=== PATIENT | male | born 1935 | race Caucasian/White ===

== ENCOUNTER 2017-06-11 13:23 | Inpatient (IN) ==
--- NOTE | 2017-06-11 13:28 | Emergency Department Note ---
Disposition Clinical Impression: Pericardial effusion, Chest pain Disposition: Admitted As Inpatient Condition: Fair General Adult HPI - General Chief complaint: ED General Medical Stated complaint: worsening [facility]ardial eff[facility] Time Seen by Provider: 06/11/17 13:26 - Related Data Home Medications Medication Instructions Recorded Confirmed Omeprazole [PriLOSEC] 20 mg PO DAILY 05/31/16 06/11/17 Terazosin [Hytrin] 3 mg PO HS 05/31/16 06/11/17 Allergies Allergy/AdvReac Type Severity Reaction Status Date / Time No Known Allergies Allergy Verified 05/31/16 06:02 Past Medical History - Past Medical History Medical history: Reports: hypertension, other Surgical history: Reports: other Psychiatric history: Reports: no psych history - Social History Smoking Status: Former smoker Smokeless Tobacco Status: No Alcohol use: Reports: none Drug use: Reports: none Course Vital Signs Temperature 98.6 F 06/11/17 13:25 Pulse Rate 70 06/11/17 13:25 Respiratory Rate 18 06/11/17 13:25 Blood Pressure 107/90 06/11/17 13:25 O2 Sat by Pulse Oximetry 97 06/11/17 13:25 Temperature 98.2 F 06/12/17 08:33 Pulse Rate 68 06/12/17 08:33 Respiratory Rate 16 06/12/17 08:33 Blood Pressure 108/73 06/12/17 08:33 O2 Sat by Pulse Oximetry 96 06/12/17 08:33 Oxygen Delivery Oxygen Delivery Room Air Medical Decision Making - Lab Data Result diagrams: 06/12/17 01:23 06/12/17 01:23 Lab Results 06/11/17 06/11/17 06/11/17 Range/Units 14:23 14:23 14:23 WBC 6.7 (4.3-11.1) K/mcL RBC 4.20 (4.19-5.50) M/mcL Hgb 9.5 L (12.9-16.9) g/dL Hct 31.0 L (37.5-50.1) % MCV 73.8 L (83.0-100.0) fL MCH 22.6 L (28.0-33.3) pg MCHC 30.6 L (31.6-35.5) g/dL RDW 16.0 H (11.5-14.5) % Plt Count 264 (140-400) K/mcL MPV 8.1 L (9.4-12.4) fL Immature Gran % 0.3 (0-4) % Seg Neutrophils % 65.2 % Lymphocytes % 25.2 % Monocytes % 8.3 % Eosinophils % 0.9 % Basophils % 0.1 % Neutrophils # 4.4 (1.6-8.9) K/mcL Lymphocytes # 1.7 (0.6-4.6) K/mcL Monocytes # 0.6 (0.0-1.3) K/mcL Eosinophils # 0.1 (0.0-0.6) K/mcL Basophils # 0.0 (0.0-0.2) K/mcL Sodium 138 (136-145) mEq/L Potassium 4.1 (3.5-4.5) mEq/L Chloride 106 (98-109) mEq/L Carbon Dioxide 28 (19-29) mEq/L BUN 25 (8-26) mg/dL Creatinine 1.12 (0.72-1.25) mg/dL Est GFR ( Amer) > 60 (> 60) Est GFR (Non-Af Amer) > 60 (> 60) BUN/Creatinine Ratio 22 (6-26) Glucose 86 (70-99) mg/dL Calculated Osmolality 290 (280-300) Calcium 8.4 L (8.6-10.8) mg/dL Troponin I 0.01 (0-0.03) ng/mL B-Natriuretic Peptide (0-100) pg/mL 06/11/17 Range/Units 14:23 WBC (4.3-11.1) K/mcL RBC (4.19-5.50) M/mcL Hgb (12.9-16.9) g/dL Hct (37.5-50.1) % MCV (83.0-100.0) fL MCH (28.0-33.3) pg MCHC (31.6-35.5) g/dL RDW (11.5-14.5) % Plt Count (140-400) K/mcL MPV (9.4-12.4) fL Immature Gran % (0-4) % Seg Neutrophils % % Lymphocytes % % Monocytes % % Eosinophils % % Basophils % % Neutrophils # (1.6-8.9) K/mcL Lymphocytes # (0.6-4.6) K/mcL Monocytes # (0.0-1.3) K/mcL Eosinophils # (0.0-0.6) K/mcL Basophils # (0.0-0.2) K/mcL Sodium (136-145) mEq/L Potassium (3.5-4.5) mEq/L Chloride (98-109) mEq/L Carbon Dioxide (19-29) mEq/L BUN (8-26) mg/dL Creatinine (0.72-1.25) mg/dL Est GFR ( Amer) (> 60) Est GFR (Non-Af Amer) (> 60) BUN/Creatinine Ratio (6-26) Glucose (70-99) mg/dL Calculated Osmolality (280-300) Calcium (8.6-10.8) mg/dL Troponin I (0-0.03) ng/mL B-Natriuretic Peptide 169 H (0-100) pg/mL Attestation Statement - Attestation Attestation: I examined this patient and my medical decision-making was reviewed with the Resident Physician. I agree with the documented findings, disposition and treatment plan as described except to the extent set forth below. Face to face time provided in conjunction with the resident physician Dr. Fenton Patient arrives as a transfer from the [facility] with concern for a pericardial effusion that was increasing in size. Her echocardiogram report there was no previous tamponade patient appears in no acute distress on exam
--- NOTE | 2017-06-11 13:52 | Emergency Department Note ---
Disposition Clinical Impression: Pericardial effusion Chest pain Qualifiers: Chest pain type: unspecified Qualified Code(s): R07.9 - Chest pain, unspecified Disposition: Admitted As Inpatient Condition: Fair General Adult HPI - General Chief complaint: ED General Medical Stated complaint: worsening [facility]ard[facility] Time Seen by Provider: 06/11/17 13:26 Source: patient, EMS Mode of arrival: EMS Limitations: no limitations Nursing Notes Reviewed: Yes Vital Signs Reviewed: Yes - History of Present Illness HPI Narrative: Patient presents ED with the chief complaint of shortness of breath. Patient reports that he has a pericardial effusion that was found incidentally on outpatient echocardiogram today. States that he had pneumonia 2 weeks ago, just finished antibiotics. States he has been getting some exertional dyspnea. Denies any fever, chest pain. No syncope. No pain or swelling in his legs. No abdominal pain. Pain Scale: 0 - Related Data Home Medications Medication Instructions Recorded Confirmed Omeprazole [PriLOSEC] 20 mg PO DAILY 05/31/16 06/11/17 Terazosin [Hytrin] 3 mg PO HS 05/31/16 06/11/17 Allergies Allergy/AdvReac Type Severity Reaction Status Date / Time No Known Allergies Allergy Verified 05/31/16 06:02 All systems ED: reviewed and negative except as stated. Constitutional: Denies: fever Cardiovascular: Reports: dyspnea on exertion. Denies: chest pain Respiratory: Reports: dyspnea Gastrointestinal: Denies: vomiting Neurological: Denies: headache Past Medical History - Past Medical History Attestation: Yes The following information was validated with the patient. Source: patient Medical history: Reports: hypertension, other Surgical history: Reports: other Psychiatric history: Reports: no psych history - Social History Smoking Status: Former smoker Smokeless Tobacco Status: No Alcohol use: Reports: none Drug use: Reports: none Physical Exam - General Limitations: no limitations General appearance: alert, in no apparent distress - Head Head exam: atraumatic, normocephalic, normal inspection - Neck Neck exam: Present: normal inspection, full ROM, trachea midline, other (. No JVD) - Chest Chest inspection: Present: normal inspection, symmetric chest wall rise - Respiratory Respiratory exam: Present: normal lung sounds bilaterally - Cardiovascular Cardiovascular exam: Present: regular rate, normal rhythm. Absent: normal heart sounds (Distant heart sounds) - Abdominal Exam Abdominal exam: Present: soft, Non-Tender. Absent: tenderness, distention, guarding, rebound, rigidity - Extremities Exam Extremities exam: Present: normal inspection, full ROM. Absent: tenderness, pedal edema - Neurological Exam Neurological exam: Present: alert, oriented X3 - Psychiatric Psychiatric exam: Present: normal affect, normal mood - Skin Skin exam: Present: warm, dry, intact, normal color Course Course Narrative: Patient presenting as a transfer from the [place] with a moderate-sized pericardial effusion with hemodynamic compromise. The echocardiogram report does show a moderate pericardial effusion and that the there are echocardiographic findings consistent with hemodynamic compromise as well as Doppler tracings being consistent with hemodynamic compromise. There are also pericardial fiberglass strands present. Patient's troponin was 0, EKG is documented, patient in no acute distress, vital signs stable. - Consultations Consultation #1: I spoke with the on-call knitting machine operator automatic, Dr. Zavala. He did recommend starting the patient on fluids and they would repeat the echo for further evaluation and management. We will admit to the medicine service. Time: 14:04 Vital Signs Temperature 98.6 F 06/11/17 13:25 Pulse Rate 70 06/11/17 13:25 Respiratory Rate 18 06/11/17 13:25 Blood Pressure 107/90 06/11/17 13:25 O2 Sat by Pulse Oximetry 97 06/11/17 13:25 Temperature 97.7 F 06/11/17 16:26 Pulse Rate 66 06/11/17 16:26 Respiratory Rate 16 06/11/17 16:26 Blood Pressure 118/84 06/11/17 16:26 O2 Sat by Pulse Oximetry 100 06/11/17 16:26 Oxygen Delivery Oxygen Delivery Room Air Medical Decision Making - Medical Records Medical records reviewed: Yes I reviewed the patient's medical records. - Lab Data Lab results reviewed: Yes I reviewed the patient's lab results. Result diagrams: 06/11/17 14:23 06/11/17 14:23 Lab Results 06/11/17 06/11/17 06/11/17 Range/Units 14:23 14:23 14:23 WBC 6.7 (4.3-11.1) K/mcL RBC 4.20 (4.19-5.50) M/mcL Hgb 9.5 L (12.9-16.9) g/dL Hct 31.0 L (37.5-50.1) % MCV 73.8 L (83.0-100.0) fL MCH 22.6 L (28.0-33.3) pg MCHC 30.6 L (31.6-35.5) g/dL RDW 16.0 H (11.5-14.5) % Plt Count 264 (140-400) K/mcL MPV 8.1 L (9.4-12.4) fL Immature Gran % 0.3 (0-4) % Seg Neutrophils % 65.2 % Lymphocytes % 25.2 % Monocytes % 8.3 % Eosinophils % 0.9 % Basophils % 0.1 % Neutrophils # 4.4 (1.6-8.9) K/mcL Lymphocytes # 1.7 (0.6-4.6) K/mcL Monocytes # 0.6 (0.0-1.3) K/mcL Eosinophils # 0.1 (0.0-0.6) K/mcL Basophils # 0.0 (0.0-0.2) K/mcL Sodium 138 (136-145) mEq/L Potassium 4.1 (3.5-4.5) mEq/L Chloride 106 (98-109) mEq/L Carbon Dioxide 28 (19-29) mEq/L BUN 25 (8-26) mg/dL Creatinine 1.12 (0.72-1.25) mg/dL Est GFR ( Amer) > 60 (> 60) Est GFR (Non-Af Amer) > 60 (> 60) BUN/Creatinine Ratio 22 (6-26) Glucose 86 (70-99) mg/dL Calculated Osmolality 290 (280-300) Calcium 8.4 L (8.6-10.8) mg/dL Troponin I 0.01 (0-0.03) ng/mL B-Natriuretic Peptide (0-100) pg/mL 06/11/17 Range/Units 14:23 WBC (4.3-11.1) K/mcL RBC (4.19-5.50) M/mcL Hgb (12.9-16.9) g/dL Hct (37.5-50.1) % MCV (83.0-100.0) fL MCH (28.0-33.3) pg MCHC (31.6-35.5) g/dL RDW (11.5-14.5) % Plt Count (140-400) K/mcL MPV (9.4-12.4) fL Immature Gran % (0-4) % Seg Neutrophils % % Lymphocytes % % Monocytes % % Eosinophils % % Basophils % % Neutrophils # (1.6-8.9) K/mcL Lymphocytes # (0.6-4.6) K/mcL Monocytes # (0.0-1.3) K/mcL Eosinophils # (0.0-0.6) K/mcL Basophils # (0.0-0.2) K/mcL Sodium (136-145) mEq/L Potassium (3.5-4.5) mEq/L Chloride (98-109) mEq/L Carbon Dioxide (19-29) mEq/L BUN (8-26) mg/dL Creatinine (0.72-1.25) mg/dL Est GFR ( Amer) (> 60) Est GFR (Non-Af Amer) (> 60) BUN/Creatinine Ratio (6-26) Glucose (70-99) mg/dL Calculated Osmolality (280-300) Calcium (8.6-10.8) mg/dL Troponin I (0-0.03) ng/mL B-Natriuretic Peptide 169 H (0-100) pg/mL - Radiology Data Radiology results reviewed: Yes I reviewed the patient's radiology results. - EKG Data EKG #1 EKG attestation: Yes I reviewed and interpreted this EKG. EKG results narrative: Sinus rhythm with occasional PVC, rate 68, OK interval 175, QRS 95, QTC 392, low voltage QRS leads, no acute ischemic changes.
[2017-06-11] MEDS: 0.9 % Sodium Chloride 1,000 ML IVC SCH (14:12)
[2017-06-11 14:30] LABS: Basophils % 0.1 %; Eosinophils # 0.1 K/mcL (0.0-0.6); Eosinophils % 0.9 %; Hemoglobin 9.5 g/dL (12.9-16.9); Immature Granulocytes % 0.3 % (0-4); Lymphocytes # 1.7 K/mcL (0.6-4.6); Lymphocytes % 25.2 %; Mean Corpuscular HGB Conc 30.6 g/dL (31.6-35.5); Mean Corpuscular Hemoglobin 22.6 pg (28.0-33.3); Mean Corpuscular Volume 73.8 fL (83.0-100.0); Mean Platelet Volume 8.1 fL (9.4-12.4); Monocytes # 0.6 K/mcL (0.0-1.3); Monocytes % 8.3 %; Neutrophils # 4.4 K/mcL (1.6-8.9); Platelet Count 264 K/mcL (140-400); Segmented Neutrophils % 65.2 %
[2017-06-11 14:44] LABS: BUN/Creatinine Ratio 22 (6-26); Blood Urea Nitrogen 25 mg/dL (8-26); Calcium 8.4 mg/dL (8.6-10.8); Carbon Dioxide 28 mEq/L (19-29); Chloride 106 mEq/L (98-109); Glucose 86 mg/dL (70-99); Osmolality,Calculated 290 (280-300); Potassium 4.1 mEq/L (3.5-4.5); Sodium 138 mEq/L (136-145); eGFR For African Americans > 60 (> 60); eGFR For Non-African Americans > 60 (> 60)
--- NOTE | 2017-06-11 15:14 | Cardiology Consult Note ---
Date of Encounter: 06/11/17 Time of Encounter: 15:08 Assessment and Plan (1) Pericardial effusion Current Visit: No Status: Acute Patient had an echo done today as an outpatient and was found to have a normal EF with a moderate pericardial effusion with hemodynamic compromise. The patient was then sent to the ED at [place]. Patient denies any chest pain, arm pain, neck or jaw pain. He does state he has had some shortness of breath associated with his pneumonia. Patient does not seem to showing sign on tamponade at this time. He is currently hemodynamically stable. The patient had a pericardial effusion approximately year ago and the echo from 05/31/16 showed a moderate circumferential pericardial effusion with a LVEF of 65%. Recommend IV fluids. Repeat echocardiogram. CT surgery has been consulted. (2) HTN (hypertension) Current Visit: No Status: Chronic Patient has a history of hypertension. Most recent blood pressure of 154/83. This is being managed by the primary service. Qualifiers: Hypertension type: essential hypertension Qualified Code(s): I10 - Essential (primary) hypertension (3) Anemia Current Visit: Yes Status: Acute Patient appears to be anemic with a hemoglobin of 9.5. This is currently being managed by the primary service. Qualifiers: Anemia type: unspecified type Qualified Code(s): D64.9 - Anemia, unspecified (4) DVT prophylaxis Current Visit: Yes Status: Acute This is being managed by the primary service. Per primary note they will use antiembolic stockings and lovenox sq for dvt prophylaxis Discussion w patient/family: The assessment and plan as outlined above was discussed with the patient and/or family members who expressed understanding and agreement. All questions were answered. Thank you for involving us in the care of your patient. Please call with any questions. History of Present Illness Consult date: 06/11/17 Requesting physician: Don Fenton Consult reason: Pericardial Effusion Chief complaint: Pericardial Effusion History of present illness: Mr. Goldman is a 81 year old male the presented to the emergency department after having an outpatient echo that showed a moderate size pericardial effusion. The patient states that last was diagnosed with pneumonia and was given antibiotic therapy that he finished yesterday. When he was diagnosed with pneumonia they also scheduled him for an Echo today. After having the Echo the patient was sent to the emergency department. The patient states that he is not having chest pain, palpitations, arm pain, neck pain or jaw pain. The patient does state that he has had some shortness of breath with his pneumonia but it is not any worse today than when he had pneumonia. The patient states that he did have a pericardial effusion about one year ago and it was treated medically. Patient denies any other cardiac history. The patient states that he is feeling well and not really having any symptoms today. Past Med Surg Social Fam HX - Past Medical History Medical history: hypertension, other Psychiatric history: no psych history - Past Surgical History Surgical History: other - Social History Smoking Status: Former smoker Smokeless Tobacco Status: No Alcohol use: none Drug use: none - Family History Father Adopted: No Living Status: Hx Family Cardiac Disorders: Yes Mother Adopted: No Living Status: Hx Family Neurologic Disorders: Yes (CVA) Medications and Allergies Omeprazole [PriLOSEC] 20 mg PO DAILY 05/31/16 [History] Terazosin [Hytrin] 3 mg PO HS 05/31/16 [History] 3 Allergy/AdvReac Type Severity Reaction Status Date / Time No Known Allergies Allergy Verified 05/31/16 06:02 All Systems Review: A 10-system review of systems was performed and is negative for pertinent findings except as documented above in the HPI. - Constitutional Constitutional: other (Tired), no chills, no fever(s) - Cardiovascular Cardiovascular: dyspnea at rest (States he has some shortness of breath ), no chest pain at rest - Respiratory Respiratory: dyspnea - Gastrointestinal Gastrointestinal: no abdominal pain - Genitourinary Genitourinary: no dysuria, no hematuria - Neurological Neurological: dizziness, no numbness, no tingling Physical Examination Vital Signs, Last 4 Hours Pulse Resp BP Pulse Ox 06/11/17 14:37 85 18 154/83 98 General: Conversant, No Apparent Distress HEENT: Atraumatic, Normocephaly, Mucus Membranes Moist Neck: No JVD, Normal carotid pulses Cardiac: Reg Rate and Rhythm, Normal S1 and S2, No Murmur Lungs: Normal Breath Sounds, No Wheeze, Rales, Rhonchi Neuro: Alert and responsive, No focal deficits noted Abdomen: Soft, Non-Tender Skin: No rashes noted on visualized skin Extremities: No Clubbing, No Cyanosis, No Edema, Normal Pulses Results 06/11/17 14:23 06/11/17 14:23 - Imaging and Cardiology Chest Xray: report reviewed Echo: report reviewed - EKG Interpretation EKG results cardiology: personally reviewed, sinus rhythm Consult Discharge Plan - Plan [facility]Primary Care Provider[facility] -
[2017-06-11] MEDS ORDERED: Naloxone 0.4 MG/ML INJ IVP PRN (15:35)
[2017-06-11] MEDS ORDERED: Acetaminophen 325 MG TABLET PO PRN (15:35)
--- NOTE | 2017-06-11 15:54 | Internal Med History&Physical ---
Date of Encounter: 06/11/17 Time of Encounter: 15:46 Assessment and Plan (1) Pericardial effusion Current visit: No Status: Acute Patient with moderate pericardial effusion on echo at [place]. Review of records revealed patient had moderate pericardial effusion on echo and CT 1 year ago as well. Cardiology consulted and will repeat echocardiogram. Monitor overnight for hemodynamic changes. 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 (2) Anemia Current visit: Yes Status: Acute Hgb today of 9.6 with Hgb approximately 1 year ago of 14.9. Patient denies black or bloody stools or bleeding episodes. He does endorse fatigue and dyspnea on exertion. Will check iron studies, B12 and folate and repeat CBC with morning labs. Consider outpatient follow up with endoscopy. Qualifiers: Anemia type: unspecified type Qualified Code(s): D64.9 - Anemia, unspecified (3) DVT prophylaxis Current visit: Yes Status: Acute anti-embolic stockings lovenox SQ daily Internal Medicine - H&P: HPI Chief complaint: pericardial effusion Admitted From: Emergency Dept Plans for Post Hospital Care: Home History of present illness: Mr. Goldman is a 81 year old male with BPH and GERD who was sent over from the [place] wit concerns of pericardial effusion seen on echocardiogram. Patient reports he has had shortness of breath on exertion, coughing, and "feeling bad" over the last 2 weeks, which he attributed to a diagnosis of pneumonia last week. He reports a poor appetite and a 10lb weight loss. He reports his is feeling a bit better after recent completion of antibiotics. He was seen today at the [place] for routine follow up and Echocardiogram. The echocardiogram demonstrated a moderate pericardial effusion and he was sent to [place] ER. Patient denies any chest pain, palpitations, lightheadedness. Evaluation in our ED included CXR which showed no acute process. EKG showed sinus rhythm with PVCs and no ischemia. BNP was mildly elevated at 169, and patient is anemic with Hgb of 9.5. Cardiology was consulted and review of the records revealed patient had a moderate pericardial effusion on echo and CT 1 year ago as well. Plan is to obtain another echocardiogram and observe patient for any hemodynamic changes overnight. On exam, patient alert and oriented, in no distress. Heart has regular rate and rhythm and lungs are clear to auscultation bilaterally. No peripheral edema. Past Med Surg Social Fam HX - Past Medical History Medical history: hypertension, other Psychiatric history: no psych history - Past Surgical History Surgical History: other - Social History Smoking Status: Former smoker Smokeless Tobacco Status: No Alcohol use: none Drug use: none - Family History Father Adopted: No Living Status: Hx Family Cardiac Disorders: Yes Mother Adopted: No Living Status: Hx Family Neurologic Disorders: Yes (CVA) Internal Medicine - H&P: Meds Omeprazole [PriLOSEC] 20 mg PO DAILY 05/31/16 [History] Terazosin [Hytrin] 3 mg PO HS 05/31/16 [History] 3 Allergy/AdvReac Type Severity Reaction Status Date / Time No Known Allergies Allergy Verified 05/31/16 06:02 All Systems PM: A 10-system review of systems was performed and is negative for pertinent findings except as documented above in the HPI. - Constitutional Constitutional: fatigue, no chills, no fever(s), no night sweats - EENT Eyes: no change in vision, no discharge, no pain, no photophobia Ears: no ear discharge, no ear pain, no tinnitus Nose, mouth and throat: no dysphagia, no nasal discharge, no neck pain, no sore throat - Cardiovascular Cardiovascular ROS IM: dyspnea on exertion, no chest pain, no diaphoresis, no dyspnea, no lightheadedness, no palpitations, no syncope - Respiratory Respiratory: cough, dyspnea on exertion, no dyspnea, no wheezing, no excessive phlegm production - Gastrointestinal Gastrointestinal: no abdominal pain, no diarrhea, no hematemesis, no hematochezia, no melena, no nausea, no vomiting - Musculoskeletal Musculoskeletal ROS IM: no numbness, no tingling - Integumentary Integumentary IM: no rash, no unusual bruising - Neurological Neurological ROS: no confusion, no convulsions, no focal weakness, no numbness, no tingling, no tremor(s) - Hematologic/Lymphatic Hematologic/Lymphatic: no easy bruising - Constitutional Vitals: Temp Pulse Resp BP Pulse Ox 98.6 F 85 18 154/83 98 06/11/17 13:25 06/11/17 14:37 06/11/17 14:37 06/11/17 14:37 06/11/17 14:37 General appearance: Present: A&O X 3, pleasant, no acute distress - Head Head exam: Present: atraumatic, normocephalic - Eye Eye exam: Present: PERRL, conjuntiva pink, sclera anicteric Pupils: Present: PERRL - Neck Neck exam general surgery: Present: supple, trachea midline. Absent: lymphadenopathy - Respiratory Respiratory exam: Present: CTAB. Absent: accessory muscle use, rales, rhonchi, wheezes - Cardiovascular Cardiovascular exam: Present: RRR, +S1, +S2. Absent: diastolic murmur, gallop, rubs, systolic murmur - GI/Abdominal GI/Abdominal exam: Present: normal bowel sounds, soft, no peritoneal signs. Absent: distended, tenderness - Extremities Exam Extremities exam: Present: warm, radial pulses palpable and symmetrical. Absent : calf tenderness, cyanotic, pedal edema - Neurological Exam Neurological exam: Present: CN II-XII intact, oriented X3, no focal deficits. Absent: pronater drift, facial droop, speech deficit - Skin Skin exam: Present: dry, intact Internal Med - H&P Results - Labs CBC & Chem 7: 06/11/17 14:23 06/11/17 14:23 Labs: All Lab Results (24 Hours) 06/11/17 06/11/17 06/11/17 Range/Units 14:23 14:23 14:23 WBC 6.7 (4.3-11.1) K/mcL RBC 4.20 (4.19-5.50) M/mcL Hgb 9.5 L (12.9-16.9) g/dL Hct 31.0 L (37.5-50.1) % MCV 73.8 L (83.0-100.0) fL MCH 22.6 L (28.0-33.3) pg MCHC 30.6 L (31.6-35.5) g/dL RDW 16.0 H (11.5-14.5) % Plt Count 264 (140-400) K/mcL MPV 8.1 L (9.4-12.4) fL Immature Gran % 0.3 (0-4) % Seg Neutrophils % 65.2 % Lymphocytes % 25.2 % Monocytes % 8.3 % Eosinophils % 0.9 % Basophils % 0.1 % Neutrophils # 4.4 (1.6-8.9) K/mcL Lymphocytes # 1.7 (0.6-4.6) K/mcL Monocytes # 0.6 (0.0-1.3) K/mcL Eosinophils # 0.1 (0.0-0.6) K/mcL Basophils # 0.0 (0.0-0.2) K/mcL Sodium 138 (136-145) mEq/L Potassium 4.1 (3.5-4.5) mEq/L Chloride 106 (98-109) mEq/L Carbon Dioxide 28 (19-29) mEq/L BUN 25 (8-26) mg/dL Creatinine 1.12 (0.72-1.25) mg/dL Est GFR ( Amer) > 60 (> 60) Est GFR (Non-Af Amer) > 60 (> 60) BUN/Creatinine Ratio 22 (6-26) Glucose 86 (70-99) mg/dL Calculated Osmolality 290 (280-300) Calcium 8.4 L (8.6-10.8) mg/dL Troponin I 0.01 (0-0.03) ng/mL B-Natriuretic Peptide (0-100) pg/mL 06/11/17 Range/Units 14:23 WBC (4.3-11.1) K/mcL RBC (4.19-5.50) M/mcL Hgb (12.9-16.9) g/dL Hct (37.5-50.1) % MCV (83.0-100.0) fL MCH (28.0-33.3) pg MCHC (31.6-35.5) g/dL RDW (11.5-14.5) % Plt Count (140-400) K/mcL MPV (9.4-12.4) fL Immature Gran % (0-4) % Seg Neutrophils % % Lymphocytes % % Monocytes % % Eosinophils % % Basophils % % Neutrophils # (1.6-8.9) K/mcL Lymphocytes # (0.6-4.6) K/mcL Monocytes # (0.0-1.3) K/mcL Eosinophils # (0.0-0.6) K/mcL Basophils # (0.0-0.2) K/mcL Sodium (136-145) mEq/L Potassium (3.5-4.5) mEq/L Chloride (98-109) mEq/L Carbon Dioxide (19-29) mEq/L BUN (8-26) mg/dL Creatinine (0.72-1.25) mg/dL Est GFR ( Amer) (> 60) Est GFR (Non-Af Amer) (> 60) BUN/Creatinine Ratio (6-26) Glucose (70-99) mg/dL Calculated Osmolality (280-300) Calcium (8.6-10.8) mg/dL Troponin I (0-0.03) ng/mL B-Natriuretic Peptide 169 H (0-100) pg/mL - Diagnostic Studies Chest x-ray Additional comments: Chest X-Ray 06/11/17 13:26 IMPRESSION: No acute process. Moderate hiatal hernia. D/ / Abril Rodriguez MD / Abril Rodriguez MD Interpreting Provider: Abril Rodriguez MD
--- NOTE | 2017-06-11 16:49 | Event Note ---
Date of Encounter: 06/11/17 Time of Encounter: 16:44 Patient seen and examined with nurse practitioner. He was transferred from the [place] because of moderate pericordial effusion. Reportedly this was also evident in a prior echocardiogram year ago. Will repeat echocardiogram. Check thyroid functions. Patient has also recently noticed 10 pound weight loss in the past 2 weeks and some functional decline. He has microcytic hypochronic anemia about 4 gm hb drop compared to last year. Has not had a colonoscopy before this can be arranged as an outpatient. No obvious GI bleeding. Patient is hemodynamically stable. No clinical signs of tamponade
--- NOTE | 2017-06-11 22:57 | Electrocardiograph Report ---
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
[2017-06-12 01:37] LABS: Basophils % 0.2 %; Eosinophils # 0.1 K/mcL (0.0-0.6); Eosinophils % 1.7 %; Hematocrit 28.2 % (37.5-50.1); Hemoglobin 8.7 g/dL (12.9-16.9); Immature Granulocytes % 0.2 % (0-4); Immature Platelets 1.2 % (1.1-6.1); Lymphocytes # 1.5 K/mcL (0.6-4.6); Lymphocytes % 27.7 %; Mean Corpuscular HGB Conc 30.9 g/dL (31.6-35.5); Mean Corpuscular Hemoglobin 23.1 pg (28.0-33.3); Mean Platelet Volume 8.3 fL (9.4-12.4); Monocytes # 0.5 K/mcL (0.0-1.3); Neutrophils # 3.3 K/mcL (1.6-8.9); Platelet Count 296 K/mcL (140-400); Red Blood Count 3.76 M/mcL (4.19-5.50); Segmented Neutrophils % 61.2 %
[2017-06-12 01:51] LABS: BUN/Creatinine Ratio 22 (6-26); Blood Urea Nitrogen 25 mg/dL (8-26); Calcium 7.8 mg/dL (8.6-10.8); Carbon Dioxide 23 mEq/L (19-29); Chloride 109 mEq/L (98-109); Glucose 79 mg/dL (70-99); Osmolality,Calculated 289 (280-300); Potassium 4.3 mEq/L (3.5-4.5); Sodium 138 mEq/L (136-145); eGFR For African Americans > 60 (> 60); eGFR For Non-African Americans > 60 (> 60)
[2017-06-12 01:56] LABS: % Iron Saturation 4 % (20-55); Iron 15 mcg/dL (65-175); Transferrin 271 mg/dL (174-364)
[2017-06-12 02:15] LABS: Carcinoembryonic Antigen 1.7 ng/mL (0-5.0)
[2017-06-12 02:30] LABS: Folate 5.9 ng/mL (7.0-31.4)
[2017-06-12 03:04] LABS: Thyroid Stimulating Hormone 1.662 mcIU/mL (0.350-4.840)
[2017-06-12] MEDS ORDERED: *HR* Enoxaparin 40 MG/0.4 ML SYRINGE SQ SCH (06:00)
[2017-06-12] MEDS: 0.9 % Sodium Chloride 1,000 ML IVC SCH (06:02)
--- NOTE | 2017-06-12 08:53 | Cardiology Progress Note ---
Date of Encounter: 06/12/17 Time of Encounter: 08:50 Assessment and Plan (1) Pericardial effusion Current Visit: Yes Status: Acute Patient had an echo done yesterday at an outside facility and was found to have a normal EF with a moderate pericardial effusion with hemodynamic compromise. The patient was then sent to the ED at [place]. Patient denies any chest pain, arm pain, neck or jaw pain. He does state he has had some shortness of breath associated with his pneumonia. Patient does not seem to showing any signs of tamponade at this time. He is currently hemodynamically stable. The patient had a pericardial effusion approximately year ago and the echo from 05/31/16 showed a moderate circumferential pericardial effusion with a LVEF of 65%. Repeat Echo on 06/11/17 at [facility] showed LVEF 60-65%. Normal LV chamber size, wall thickness and function. Normal right ventricular structure and function. Unable to estimate RVSP due to lack of TR jet. There is a small to moderate circumferential pericardial effusion present. There is no echocardiographic evidence of tamponade in the views obtained. The IVC is not well evaluated. Subcostal images not well obtained. Patient is currently asymptomatic and is not displaying any physical signs of tamponade and the effusion seems to be uncahnged from previous echos. CT surgery has been consulted. We will sign off of the case at this time. Follow up with cardiology (2) HTN (hypertension) Current Visit: No Status: Chronic Patient has a history of hypertension. Most recent blood pressure of 115/71. This is being managed by the primary service. (3) Anemia Current Visit: Yes Status: Acute Patient appears to be anemic with a hemoglobin of 8.7 this is a decrease from yesterdays hemoglobin of 9.5. Patient denies any blood in the stool, coughing up blood, blood in the urine or any sort of abdominal pain. This is currently being managed by the primary service. Qualifiers: Anemia type: unspecified type Qualified Code(s): D64.9 - Anemia, unspecified (4) DVT prophylaxis Current Visit: Yes Status: Acute Antiembolic stockings and lovenox sq for dvt prophylaxis. This is being managed by the primary service Discussion w patient/family: The assessment and plan as outlined above was discussed with the patient and/or family members who expressed understanding and agreement. All questions were answered. Thank you for involving us in the care of your patient. Please call with any questions. Subjective Principal diagnosis: Pericardial Effusion Interval history: Patient states that he is going well today. He says that he had no issues overnight other than the bed being uncomfortable so he did not get much sleep. The patient denies any chest pain, palpitations, arm pain, jaw or neck pain. He states that his shortness of breath seems to be about the same. Patient denies having any pain anywhere. He states he does have a little bit of a cough because he has not been drinking as much water while in the hospital. Overall the patient states that he is doing well and has not complaints at this time. Objective Vital Signs, Last 4 Hours Temp Pulse Resp BP Pulse Ox 06/12/17 08:33 98.2 F 68 16 108/73 96 General: Conversant, No Apparent Distress HEENT: Atraumatic, Normocephaly, Mucus Membranes Moist Neck: No JVD, Normal carotid pulses Cardiac: Reg Rate and Rhythm, Normal S1 and S2, No Murmur Lungs: Other (Rales on right lower lung field) Neuro: Alert and responsive, No focal deficits noted Abdomen: Soft, Non-Tender Skin: No rashes noted on visualized skin Extremities: No Clubbing, No Cyanosis, No Edema, Normal Pulses Results 06/12/17 01:23 06/12/17 01:23 Lab Results 06/12/17 06/12/17 06/12/17 01:23 01:23 01:23 WBC 5.3 Hgb 8.7 L Hct 28.2 L Plt Count 296 Sodium 138 Potassium 4.3 Chloride 109 Carbon Dioxide 23 BUN 25 Creatinine 1.15 Glucose 79 Calcium 7.8 L TSH 1.662 - Imaging and Cardiology Chest Xray: report reviewed Echo: report reviewed - EKG Interpretation EKG results cardiology: personally reviewed, sinus rhythm - VTE Documentation of Mechanical Device: Graduated compression elastic hosiery Consult Discharge Plan - Plan [facility]: [facility] Care Provider[facility] - 06/25/17 9:00 am (THIS IS WITH THE [facility] TEAM)
[2017-06-12] MEDS ORDERED: Folic Acid 1 MG TABLET PO SCH (09:00)
--- NOTE | 2017-06-12 10:12 | Internal Med Progress Note ---
Date of Encounter: 06/12/17 Time of Encounter: 09:50 - Assessment and plan (1) BPH (benign prostatic hyperplasia) Current Visit: Yes Status: Acute (2) Pericardial effusion Current Visit: Yes Status: Acute (3) HTN (hypertension) Current Visit: No Status: Chronic Qualifiers: Hypertension type: essential hypertension Qualified Code(s): I10 - Essential (primary) hypertension (4) GERD (gastroesophageal reflux disease) Current Visit: No Status: Chronic Qualifiers: Esophagitis presence: without esophagitis Qualified Code(s): K21.9 - Gastro -esophageal reflux disease without esophagitis (5) Anemia Current Visit: Yes Status: Acute Qualifiers: Anemia type: unspecified type Qualified Code(s): D64.9 - Anemia, unspecified - Subjective Interval history: Reports exertional dyspnea and fatigue. No chest pain, palpitations, leg swelling, nausea/vomiting or abdominal pain. - Constitutional Vitals: Temp Pulse Resp BP Pulse Ox 98.2 F 68 16 108/73 96 06/12/17 08:33 06/12/17 08:33 06/12/17 08:33 06/12/17 08:33 06/12/17 08:33 General appearance: Present: A&O X 3, answers questions appropriately - Respiratory Respiratory exam: Present: CTAB. Absent: accessory muscle use, rales, rhonchi, wheezes - Cardiovascular Cardiovascular exam: Present: RRR, +S1, +S2. Absent: diastolic murmur, gallop, rubs, systolic murmur - GI/Abdominal GI/Abdominal exam: Present: normal bowel sounds, soft, no peritoneal signs. Absent: distended, tenderness - Extremities Exam Extremities exam: Present: full ROM, warm, radial pulses palpable and symmetrical. Absent: calf tenderness, cyanotic, pedal edema - Neurological Exam Neurological exam: Present: CN II-XII intact, oriented X3, no focal deficits. Absent: pronater drift, facial droop, speech deficit Internal Medicine: Result - Labs CBC & Chem 7: 06/12/17 01:23 06/12/17 01:23 Labs: Short CBC 06/12/17 Range/Units 01:23 WBC 5.3 (4.3-11.1) K/mcL Hgb 8.7 L (12.9-16.9) g/dL Hct 28.2 L (37.5-50.1) % Plt Count 296 (140-400) K/mcL Neutrophils # 3.3 (1.6-8.9) K/mcL BMP 06/12/17 01:23 Sodium 138 Potassium 4.3 Chloride 109 Carbon Dioxide 23 BUN 25 Creatinine 1.15 Glucose 79 Calcium 7.8 L - VTE Documentation of Mechanical Device: Graduated compression elastic hosiery Consult Discharge Plan - Plan [facility]errals: [facility] [Primary Care Provider] -
[2017-06-12 10:58] VITALS: BP 115/64
--- NOTE | 2017-06-12 14:53 | Discharge Summary ---
Date of Encounter: 06/12/17 Time of Encounter: 10:45 - Discharge Diagnosis (1) Anemia Priority: Primary Status: Chronic Qualifiers: Anemia type: folate deficiency Folate deficiency anemia type: unspecified folate deficiency Qualified Code(s): D52.9 - Folate deficiency anemia, unspecified (2) Pericardial effusion Priority: Primary Status: Chronic (3) BPH (benign prostatic hyperplasia) Priority: Secondary Status: Chronic Qualifiers: Lower urinary tract symptom presence: unspecified whether lower urinary tract symptoms present Qualified Code(s): N40.0 - Benign prostatic hyperplasia without lower urinary tract symptoms (4) HTN (hypertension) Priority: Secondary Status: Chronic Qualifiers: Hypertension type: essential hypertension Qualified Code(s): I10 - Essential (primary) hypertension (5) GERD (gastroesophageal reflux disease) Priority: Secondary Status: Chronic Qualifiers: Esophagitis presence: esophagitis presence not specified Qualified Code(s) : K21.9 - Gastro-esophageal reflux disease without esophagitis - Discharge Medications Prescriptions: Ferrous Sulfate 325 mg PO BIDWM #60 tablet Folic Acid 1 mg PO DAILY #30 tablet Home Medications: Omeprazole [PriLOSEC] 20 mg PO DAILY 05/31/16 [History] Terazosin [Hytrin] 3 mg PO HS 05/31/16 [History] Ferrous Sulfate 325 mg PO BIDWM #60 tablet 06/12/17 [Rx] Folic Acid 1 mg PO DAILY #30 tablet 06/12/17 [Rx] Allergies/Adverse Reactions: 3 Allergy/AdvReac Type Severity Reaction Status Date / Time No Known Allergies Allergy Verified 05/31/16 06:02 Procedures/tests Complete & Pending: Procedures Performed prior 72 hours Category Date Time Status EV echocardiogram Routine Y 06/11/17 Completed Date of admission: 06/11/17 14:34 Primary care physician: PCP [facility] Consults: 06/11/17 16:45 Consult to Nutrition [CONS] Routine Comment: Consulting Provider: NUTRITION Reason for Dietary Consult: Diet Education Discharging clinician: Irma Gates Anticipated date of discharge: 06/12/17 - Patient Status Disposition: Home, Self-Care Condition: Good Functional capacity at discharge: independent ambulation Overall status at discharge: patient is progressing back to baseline - Discharge Instructions Instructions: Iron Supplements (By mouth), Folic Acid (By mouth), Chest Pain ( DC), Heart Healthy Diet (DC), Anemia (GEN) Follow Up With: [facility],PCP [Primary Care Provider] - 06/25/17 9:00 am (THIS IS WITH THE [facility] TEAM) Additional Instructions: Follow-up appointments: If there is not an appointment listed below, please call your physician and schedule a follow-up appointment. If you have congestive heart failure and your symptoms return, make an appointment with your physician. Medication List: Carry an up to date list of medications you are taking at all time. We have given you an updated medication list including any new medications that you have been prescribed. Please provide that list to your primary provider Symptoms: If your condition changes or you experience any of the following symptoms, notify your physician immediately: Unusual or worsening pain, fever, persistent nausea and vomiting, bleeding, increase in swelling (especially in your legs), sudden weight gain, extreme dizziness, chest pain, increased drainage or redness from a wound or incision. Go to the emergency department if you experience a problem with breathing. Weights: If you have a history of swelling or shortness of breath, weigh yourself daily and notify your physician if you have a weight gain of two or more pounds in one day or 5 or more pounds in a week. If you experience any of the warning signs for stroke: Sudden numbness or weakness of the face, arm or leg; especially on one side of the body, sudden confusion, trouble speaking or understanding, sudden trouble seeing in one or both eyes, sudden trouble walking, dizziness, loss of balance or coordination, sudden sever headache with no cause; Call 911 or go to the emergency room. Stroke is a medical emergency. Some risk factors for stroke: Age, cigarette smoking, diabetes, excessive alcohol consumption, family history , high blood pressure, overweight, physical inactivity, prior stroke, heart attack, diagnosis of carotid artery stenosis or other artery disease. If you smoke, STOP: Smoking or tobacco use significantly increases your risk of heart and lung disease. Your chance of disease greatly increases if you continue to smoke. For more information, call the [employer] tobacco quit line for smoking cessation - QUIT-NOW ( ) - Diet and Activity Activity: resume usual activities as tolerated Diet: low fat, low cholesterol, low salt diet, other (iron-fortified diet) Hospital course: Mr. Goldman is a 81 year old male with the above medical problems, who was admitted with exertional dyspnea and fatigue, noted to have moderate pericardial effusion on outpatient echocardiogram. He was admitted to our hospital from the [facility] emergency room, for further evaluation. Cardiology was consulted, recommended to repeat echocardiogram, which showed mild to moderate pericardial effusion, mild left ventricular diastolic dysfunction. No evidence of tamponade. Patient also was noted to have pericardial effusion on previous imaging done about a year ago. No further intervention was recommended. Incidentally, patient was noted to have microcytic anemia with hemoglobin around 14 1 year ago, which is currently around 9.6. Iron profile showed low iron stores, serum vitamin B12 was noted to be within normal limits and serum folic acid level was noted to be low. Patient is being started on ferrous sulfate and folic acid supplements. He has been explained about the need to rule out occult GI bleed, however he mentioned that he was offered colonoscopy by his PCP which he declines at this time. Patient is currently medically stable for discharge with outpatient follow-up with primary care provider and cardiology. - Time Spent with Patient Total time spent providing and/or coordinating discharge services: Greater than 30 minutes (40 min) - Constitutional Vitals: Temp Pulse Resp BP Pulse Ox 97.7 F 56 16 115/64 98 06/12/17 10:56 06/12/17 11:00 06/12/17 10:56 06/12/17 10:56 06/12/17 10:56 General appearance: Present: A&O X 3, answers questions appropriately - Cardiovascular Cardiovascular exam: Present: RRR, +S1, +S2. Absent: diastolic murmur, gallop, rubs, systolic murmur - VTE Documentation of Mechanical Device: Graduated compression elastic hosiery
== END 2017-06-12 15:10 | disposition home or self-care (01) | DRG 316 ==
LOC: EMEROO 13:23 → 2NNU 14:34
PROVIDERS: ADMIT Hospitalist; ATTEND Internal Medicine

== ENCOUNTER 2022-02-14 12:26 | Observation (INO) ==
[2022-02-14] MEDS ORDERED: Furosemide 40 MG/4 ML VIAL IVP ONE (13:07)
[2022-02-14] MEDS ORDERED: Nitroglycerin 0.4 MG TAB.SUBL SL STA (13:07)
[2022-02-14 13:11] LABS: Mean Corpuscular Volume 64.5 fL (83.0-100.0)
[2022-02-14 13:12] LABS: Hematocrit 31.5 % (37.5-50.1); Hemoglobin 8.6 g/dL (12.9-16.9); Mean Corpuscular HGB Conc 27.3 g/dL (31.6-35.5); Mean Corpuscular Hemoglobin 17.6 pg (28.0-33.3); Mean Platelet Volume 8.3 fL (9.4-12.4); Platelet Count 348 K/mcL (140-400); Red Blood Count 4.88 M/mcL (4.19-5.50); Red Cell Distribution Width 20.7 % (11.5-14.5)
[2022-02-14 13:25] LABS: BUN/Creatinine Ratio 18 (6-26); Blood Urea Nitrogen 22 mg/dL (8-23); Calcium 8.7 mg/dL (8.6-10.3); Carbon Dioxide 25 mEq/L (23-29); Chloride 106 mEq/L (98-107); Glucose 112 mg/dL (70-105); Osmolality,Calculated 288 (280-300); Potassium 4.7 mEq/L (3.5-5.1); Sodium 137 mEq/L (136-145); Troponin I < 0.03 ng/mL (< 0.04); eGFR For African Americans > 60 (> 60); eGFR For Non-African Americans 55 (> 60)
[2022-02-14 14:00] LABS: Lymphocytes # 1.1 K/mcL (0.6-4.6); Monocytes # 0.1 K/mcL (0.0-1.3); Neutrophils # 5.7 K/mcL (1.6-8.9); Reactive Lymphocytes Present (Not Present)
[2022-02-14 14:01] LABS: Anisocytosis 2+ (Not Present); Hypochromasia Present (Not Present); Platelet Estimate Normal (Normal); Poikilocytosis 1+ (Not Present)
[2022-02-14 14:02] LABS: Microcytosis Present (Not Present); Polychromasia 1+ (Not Present)
[2022-02-14 14:04] LABS: Influenza A PCR Negative (Negative); Influenza B PCR Negative (Negative); Resp. Syncytial Virus PCR Negative (Negative); SARS-CoV-2 by PCR (In House) Negative (Negative)
[2022-02-14] MEDS ORDERED: Naloxone 0.4 MG/ML INJ IVP PRN (14:59)
[2022-02-14] MEDS ORDERED: Perflutren Lipid Microsphere 1.3 ML in 0.9 % Sodium Chloride 8.7 ML IVP PRN (15:00)
[2022-02-14 16:00] LABS: Acetaminophen < 10 mcg/mL (10-20); Ethanol < 10 mg/dL (Less than 10); Salicylate < 2.5 mg/dL (15.0-30.0)
[2022-02-14] MEDS ORDERED: Ipratropium/Albuterol Neb 3 ML IH PRN (16:34)
[2022-02-14] MEDS: *HR* Heparin 5,000 UNIT/ML VIAL SQ SCH (17:57)
[2022-02-14] MEDS: Budesonide/Formoterol 160/4.5 1 PUFF INH IH SCH (20:09)
[2022-02-14] MEDS ORDERED: Furosemide 20 MG/2 ML VIAL IVP SCH (21:00)
[2022-02-14 21:26] LABS: Amphetamine Screen,Urine Negative ng/mL (Cutoff=1000); Barbiturate Screen,Urine Negative ng/mL (Cutoff=200); Benzodiazepines Screen,Urine Negative ng/mL (Cutoff=200); Cannabinoid Screen,Urine Negative ng/mL (Cutoff = 50); Cocaine Screen,Urine Negative ng/mL (Cutoff= 300); Opiate Screen,Urine Negative ng/mL (Cutoff=300); Phencyclidine Screen,Urine Negative ng/mL (Cutoff=25)
[2022-02-15 03:36] LABS: Hemoglobin 8.3 g/dL (12.9-16.9); Immature Granulocytes % 0.2 % (0-4)
[2022-02-15 03:38] LABS: Basophils % 0.6 %; Eosinophils # 0.1 K/mcL (0.0-0.6); Eosinophils % 1.4 %; Hematocrit 29.5 % (37.5-50.1); Lymphocytes % 21.3 %; Mean Corpuscular HGB Conc 28.1 g/dL (31.6-35.5); Mean Corpuscular Hemoglobin 17.8 pg (28.0-33.3); Mean Corpuscular Volume 63.3 fL (83.0-100.0); Mean Platelet Volume 8.2 fL (9.4-12.4); Monocytes # 0.5 K/mcL (0.0-1.3); Monocytes % 9.9 %; Neutrophils # 3.3 K/mcL (1.6-8.9); Platelet Count 320 K/mcL (140-400); Red Blood Count 4.66 M/mcL (4.19-5.50); Red Cell Distribution Width 20.4 % (11.5-14.5); Segmented Neutrophils % 66.6 %; White Blood Count 4.9 K/mcL (4.3-11.1)
[2022-02-15 03:58] LABS: % Iron Saturation 4 % (20-55); BUN/Creatinine Ratio 17 (6-26); Blood Urea Nitrogen 24 mg/dL (8-23); Calcium 8.8 mg/dL (8.6-10.3); Carbon Dioxide 26 mEq/L (23-29); Chloride 103 mEq/L (98-107); Glucose 90 mg/dL (70-105); Iron 17 mcg/dL (65-175); Osmolality,Calculated 288 (280-300); Potassium 4.5 mEq/L (3.5-5.1); Sodium 137 mEq/L (136-145); Transferrin 325 mg/dL (203-362); eGFR For African Americans 57 (> 60); eGFR For Non-African Americans 47 (> 60)
[2022-02-15 04:25] LABS: Ferritin < 8 ng/mL (20-250)
[2022-02-15 04:26] LABS: Anisocytosis 2+ (Not Present); Hypochromasia Present (Not Present); Microcytosis Present (Not Present); Platelet Estimate Normal (Normal)
[2022-02-15] MEDS: *HR* Heparin 5,000 UNIT/ML VIAL SQ SCH ×2 (05:24→17:58)
[2022-02-15] MEDS ORDERED: Iron Sucrose Complex 400 MG in 0.9 % Sodium Chloride 250 ML IVPB ONE (07:20)
[2022-02-15] MEDS: Budesonide/Formoterol 160/4.5 1 PUFF INH IH SCH ×2 (07:54→20:00)
[2022-02-15 08:20] LABS: INR 1.2; Prothrombin Time 13.7 Seconds (9.4-12.1)
[2022-02-15] MEDS: Cholecalciferol (D-3) 1,000 UNIT (25MCG) TABLET PO SCH (08:23)
[2022-02-15] MEDS: Aspirin Enteric Coated 81 MG Tablet PO SCH (08:23)
[2022-02-15] MEDS: predniSONE 5 MG TABLET PO SCH (08:23)
[2022-02-15] MEDS ORDERED: Furosemide 20 MG/2 ML VIAL IVP SCH (09:00)
[2022-02-15] MEDS ORDERED: Ipratropium/Albuterol Neb 3 ML IH PRN (10:18)
[2022-02-15] MEDS ORDERED: *HR* OxyCODONE/APAP 5/325 TABLET PO PRN (17:48)
[2022-02-16 02:38] LABS: Calcium 8.3 mg/dL (8.6-10.3); Potassium 4.1 mEq/L (3.5-5.1)
[2022-02-16] MEDS: *HR* Heparin 5,000 UNIT/ML VIAL SQ SCH (05:16)
[2022-02-16 06:55] VITALS: BP 110/67; PULSE 72; TEMP 97.7
[2022-02-16] MEDS: Budesonide/Formoterol 160/4.5 1 PUFF INH IH SCH (07:35)
[2022-02-16 07:57] VITALS: O2SAT 98
[2022-02-16] MEDS: predniSONE 5 MG TABLET PO SCH (08:03)
[2022-02-16] MEDS: Aspirin Enteric Coated 81 MG Tablet PO SCH (08:03)
[2022-02-16] MEDS: Cholecalciferol (D-3) 1,000 UNIT (25MCG) TABLET PO SCH (08:03)
[2022-02-16] MEDS ORDERED: Furosemide 20 MG TABLET PO SCH (10:15)
== END 2022-02-16 10:47 | disposition home or self-care (01) ==
LOC: 2ANU 12:26 → EMEROOARM 12:26 → SUATTDRO 15:19 → 2ANU 16:13
PROVIDERS: ADMIT Hospitalist; ATTEND Internal Medicine